=== PATIENT | female | born 1995 | race Caucasian/White ===

== ENCOUNTER 2020-12-26 17:35 | Emergency (ER) | payer MEDICAID, OTHER ==
[~2020-12-26] VITALS: Ht 175.2 cm; Wt 57.9 kg
--- NOTE | 2020-12-26 17:49 | ED Fall/Injury ---
General Stated Complaint: FALL | SYNCOPE | SHAKING History of Present Illness Date Seen by Provider: Dec 26, 2020 Time Seen by Provider: 17:45 Initial Comments 25-year-old female presents with a "seizure-like episode" patient's mom reports that she was there and Fell to the ground right low back of her head she shook and her tongue was going in and out. Lasted real briefly. The patient was aware that something abnormal had happened. She did not bite her tongue. She has no seizure history. She recently had her teeth pulled as on some Lortab for pain. She describes some generalized malaise. Maybe some fever. No nausea, vomiting. She had no loss of bowel or bladder function. Allergies and Home Medications Allergies Coded Allergies: No Known Drug Allergies (Unverified , 12/26/20) Uncoded Allergies: coffee beans (Adverse Reaction, Unknown, 12/26/20) Home Medications Cephalexin 500 Mg Tablet, 500 MG PO QID Prescribed by: KRISSY PRO on 12/26/20 [id number] Patient Home Medication List Home Medication List Reviewed: Yes Review of Systems Review of Systems Constitutional: see HPI; No chills Eyes: No Symptoms Reported Ears, Nose, Mouth, Throat: see HPI Respiratory: no symptoms reported Gastrointestinal: no symptoms reported Genitourinary: no symptoms reported Musculoskeletal: see HPI Skin: no symptoms reported Psychiatric/Neurological: See HPI Past Ixtiaqf-Drrxsg-Zrlqiu Hx Past Med/Social Hx: Reviewed Nursing Past Med/Soc Hx Physical Exam Vital Signs Vital Signs - First Documented 12/26/20 17:45 Temp 36.9 Pulse 58 Resp 18 B/P (MAP) 105/73 (84) Pulse Ox 100 O2 Delivery Room Air Capillary Refill : Height, Weight, BMI Height: '" Weight: lbs. oz. kg; BMI Method: General Appearance: no apparent distress HEENT: PERRL/EOMI, normal ENT inspection Neck: full range of motion, supple Cardiovascular: normal peripheral pulses, regular rate, rhythm, no edema Respiratory: lungs clear, normal breath sounds Gastrointestinal: non tender, soft Back: no CVA tenderness, no vertebral tenderness Extremities: normal range of motion, non-tender Neurologic/Psychiatric: normal mood/affect, oriented x 3 Skin: normal color, warm/dry Progress/Results/Core Measures Results/Orders Lab Results Laboratory Tests Test 12/26/20 17:52 12/26/20 17:58 Range/Units White Blood Count 13.5 H 4.3-11.0 10^3/uL Red Blood Count 4.60 4.35-5.85 10^6/uL Hemoglobin 13.8 11.5-16.0 G/DL Hematocrit 40 35-52 % Mean Corpuscular Volume 88 80-99 FL Mean Corpuscular Hemoglobin 30 25-34 PG Mean Corpuscular Hemoglobin Concent 34 32-36 G/DL Red Cell Distribution Width 12.1 10.0-14.5 % Platelet Count 300 130-400 10^3/uL Mean Platelet Volume 10.6 H 7.4-10.4 FL Immature Granulocyte % (Auto) 0 % Neutrophils (%) (Auto) 54 42-75 % Lymphocytes (%) (Auto) 38 12-44 % Monocytes (%) (Auto) 5 0-12 % Eosinophils (%) (Auto) 2 0-10 % Basophils (%) (Auto) 0 0-10 % Neutrophils # (Auto) 7.2 1.8-7.8 X 10^3 Lymphocytes # (Auto) 5.1 H 1.0-4.0 X 10^3 Monocytes # (Auto) 0.7 0.0-1.0 X 10^3 Eosinophils # (Auto) 0.3 0.0-0.3 10^3/uL Basophils # (Auto) 0.0 0.0-0.1 10^3/uL Immature Granulocyte # (Auto) 0.1 0.0-0.1 10^3/uL Sodium Level 140 135-145 MMOL/L Potassium Level 3.9 3.6-5.0 MMOL/L Chloride Level 107 98-107 MMOL/L Carbon Dioxide Level 24 21-32 MMOL/L Anion Gap 9 5-14 MMOL/L Blood Urea Nitrogen 11 7-18 MG/DL Creatinine 0.82 0.60-1.30 MG/DL Estimat Glomerular Filtration Rate > 60 BUN/Creatinine Ratio 13 Glucose Level 108 H 70-105 MG/DL Lactic Acid Level 0.90 0.50-2.00 MMOL/L Calcium Level 8.9 8.5-10.1 MG/DL Corrected Calcium 8.7 8.5-10.1 MG/DL Magnesium Level 2.0 1.6-2.4 MG/DL Total Bilirubin 1.1 H 0.1-1.0 MG/DL Aspartate Amino Transf (AST/SGOT) 12 5-34 U/L Alanine Aminotransferase (ALT/SGPT) 11 0-55 U/L Alkaline Phosphatase 58 40-136 U/L Total Protein 6.6 6.4-8.2 GM/DL Albumin 4.2 3.2-4.5 GM/DL Serum Alcohol < 10 <10 MG/DL Urine Color DARK YELLOW Urine Clarity CLOUDY Urine pH 6.0 5-9 Urine Specific [place] 1.025 H 1.016-1.022 Urine Protein 2+ H NEGATIVE Urine Glucose (UA) NEGATIVE NEGATIVE Urine Ketones TRACE H NEGATIVE Urine Nitrite NEGATIVE NEGATIVE Urine Bilirubin 1+ H NEGATIVE Urine Urobilinogen 1.0 < = 1.0 MG/DL Urine Leukocyte Esterase TRACE H NEGATIVE Urine RBC (Auto) 2+ H NEGATIVE Urine RBC 50-100 H /HPF Urine WBC 5-10 H /HPF Urine Squamous Epithelial Cells 5-10 /HPF Urine Crystals NONE /LPF Urine Bacteria FEW H /HPF Urine Casts NONE /LPF Urine Mucus LARGE H /LPF Urine Culture Indicated YES Urine Test NEGATIVE NEGATIVE Urine Opiates Screen POSITIVE H NEGATIVE Urine Oxycodone Screen NEGATIVE NEGATIVE Urine Methadone Screen NEGATIVE NEGATIVE Urine Propoxyphene Screen NEGATIVE NEGATIVE Urine Barbiturates Screen NEGATIVE NEGATIVE Ur Tricyclic Antidepressants Screen NEGATIVE NEGATIVE Urine Phencyclidine Screen NEGATIVE NEGATIVE Urine Amphetamines Screen NEGATIVE NEGATIVE Urine Methamphetamines Screen NEGATIVE NEGATIVE Urine Benzodiazepines Screen NEGATIVE NEGATIVE Urine Cocaine Screen NEGATIVE NEGATIVE Urine Cannabinoids Screen POSITIVE H NEGATIVE My Orders Orders - PRO,KRISSY L DO Alcohol (12/26/20 17:49) Cbc With Automated Diff (12/26/20 17:49) Comprehensive Metabolic Panel (12/26/20 17:49) Drug Screen Stat (Urine) (12/26/20 17:49) Hcg,Qualitative Urine (12/26/20 17:49) Lactic Acid Analyzer (12/26/20 17:49) Magnesium (12/26/20 17:49) Ua Culture If Indicated (12/26/20 17:49) Ct Head Wo (12/26/20 17:49) Lactated Ringers (Lr 1000 Ml Iv Solution (12/26/20 18:11) Urine Culture (12/26/20 17:58) Ceftriaxone For Iv Use (Rocephin For I (12/26/20 18:26) Vital Signs/I&O 12/26/20 17:45 Temp 36.9 Pulse 58 Resp 18 B/P (MAP) 105/73 (84) Pulse Ox 100 O2 Delivery Room Air Progress Progress Note : Progress Note Patient's history and current exam seems more likely a syncopal event. However unsure if she passed he did have seizure activity. She does have a urinary tract infection. I will start her on Keflex outpatient due to the recent dental work and her urinary tract infection. I recommend they follow-up with her primary care provider and outpatient basis to have further evaluation for possible seizure. Patient stable and discharged Diagnostic Imaging Diagonstic Imaging: CT Plain Films/CT/US/NM/MRI: head Comments Date of Exam:12/26/20 CT HEAD WO PROCEDURE: CT head without contrast. TECHNIQUE: Multiple contiguous axial images were obtained through the brain without the use of intravenous contrast. Auto Exposure Controls were utilized during the CT exam to meet ALARA standards for radiation dose reduction. INDICATION: Seizures. FINDINGS: There is no hemorrhage, hydrocephalus, edema, mass, mass effect or evidence for an elevation of the intracranial pressures. The basilar cisterns are patent. There is no sulcal effacement. There are no abnormal extra-axial fluid collections. The orbits, sinuses and calvarium appear nonacute. IMPRESSION: No acute appearing abnormality. Focused Exam Lactate Level 12/26/20 17:52: Lactic Acid Level 0.90 Lactic Acid Level Laboratory Tests Test 12/26/20 17:52 Lactic Acid Level 0.90 MMOL/L (0.50-2.00) Departure Impression Primary Impression: Urinary tract infection Qualified Codes: N30.01 - Acute cystitis with hematuria Additional Impression: Witnessed seizure-like activity Disposition: HOME, SELF-CARE Condition: Stable Departure-Patient Inst. Referrals: HEBER LEIVA MD (PCP/Family) Primary Care Physician Patient Instructions: Urinary Tract Infection, Adult ED, Seizures, Syncope (Fainting) (DC) Add. Discharge Instructions: Follow-up with your primary care provider next week for recheck of your symptoms and further outpatient evaluation for potential seizure activity Scripts Cephalexin (Cephalexin) 500 Mg Tablet 500 MG PO QID, #20 TAB 0 Refills Prov: PRO,KRISSY L DO 12/26/20 PROSABRINAR L DO Dec 26, 2020 17:49
[2020-12-26 18:09] LABS: BASOPHILS % (AUTO) 0 % (0-10); EOSINOPHILS % (AUTO) 2 % (0-10); HEMATOCRIT 40 % (35-52); HEMOGLOBIN 13.8 G/DL (11.5-16.0); LYMPHOCYTES % (AUTO) 38 % (12-44); MEAN CORPUSCULAR HEMOGLOBIN 30 PG (25-34); MEAN CORPUSCULAR HGB CONC 34 G/DL (32-36); MEAN CORPUSCULAR VOLUME 88 FL (80-99); MEAN PLATELET VOLUME 10.6 FL (7.4-10.4); MONOCYTES % (AUTO) 5 % (0-12); NEUTROPHILS % (AUTO) 54 % (42-75); PLATELET COUNT 300 10^3/uL (130-400); WHITE BLOOD COUNT 13.5 10^3/uL (4.3-11.0)
[2020-12-26 18:10] LABS: HCG,QUALITATIVE URINE NEGATIVE (NEGATIVE)
[2020-12-26 18:10] LABS: EOSINOPHILS # (AUTO) 0.3 10^3/uL (0.0-0.3); LYMPHOCYTES # (AUTO) 5.1 X 10^3 (1.0-4.0); MONOCYTES # (AUTO) 0.7 X 10^3 (0.0-1.0); NEUTROPHILS # (AUTO) 7.2 X 10^3 (1.8-7.8)
[2020-12-26] MEDS ORDERED: LACTATED RINGERS 1,000 ML IV STA (18:11)
[2020-12-26] MEDS ORDERED: Amoxicillin (18:13)
[2020-12-26] MEDS ORDERED: Hydrocodone (18:13)
--- NOTE | 2020-12-26 18:15 | Diagnostic Imaging Report ---
PROCEDURE: CT head without contrast. TECHNIQUE: Multiple contiguous axial images were obtained through the brain without the use of intravenous contrast. Auto Exposure Controls were utilized during the CT exam to meet ALARA standards for radiation dose reduction. INDICATION: Seizures. FINDINGS: There is no hemorrhage, hydrocephalus, edema, mass, mass effect or evidence for an elevation of the intracranial pressures. The basilar cisterns are patent. There is no sulcal effacement. There are no abnormal extra-axial fluid collections. The orbits, sinuses and calvarium appear nonacute. IMPRESSION: No acute appearing abnormality. Dictated by: Dictated on workstation # [id number]
[2020-12-26 18:16] LABS: BACTERIA,URINE FEW /HPF; BILIRUBIN,URINE 1+ (NEGATIVE); CLARITY,URINE CLOUDY; COLOR,URINE DARK YELLOW; GLUCOSE, URINE (UA) NEGATIVE (NEGATIVE); KETONES,URINE TRACE (NEGATIVE); LEUKOCYTE ESTERASE ,URINE TRACE (NEGATIVE); NITRITE,URINE NEGATIVE (NEGATIVE); PROTEIN,URINE 2+ (NEGATIVE); RBC,URINE 50-100 /HPF
[2020-12-26 18:19] LABS: AMPHETAMINE SCREEN, URINE NEGATIVE (NEGATIVE); BARBITURATE SCREEN URINE NEGATIVE (NEGATIVE); BENZODIAZEPINES SCREEN URINE NEGATIVE (NEGATIVE); CANNABINOID SCREEN, URINE POSITIVE (NEGATIVE); COCAINE SCREEN URINE NEGATIVE (NEGATIVE); METHADONE STAT NEGATIVE (NEGATIVE); METHAMPHETAMINE SCREEN URINE S NEGATIVE (NEGATIVE); OPIATE SCREEN URINE POSITIVE (NEGATIVE); OXYCODONE STAT NEGATIVE (NEGATIVE); PROPOXYPHENE STAT NEGATIVE (NEGATIVE); TRICYCLIC ANTIDEPRESSANTS SCRE NEGATIVE (NEGATIVE)
[2020-12-26 18:25] LABS: ALKALINE PHOSPHATASE 58 U/L (40-136); BILIRUBIN,TOTAL 1.1 MG/DL (0.1-1.0); BUN/CREATININE RATIO 13; CALCIUM 8.9 MG/DL (8.5-10.1); CARBON DIOXIDE 24 MMOL/L (21-32); CHLORIDE 107 MMOL/L (98-107); CREATININE SERUM 0.82 MG/DL (0.60-1.30); GFR ESTIMATED > 60; GLUCOSE 108 MG/DL (70-105); POTASSIUM 3.9 MMOL/L (3.6-5.0); SODIUM 140 MMOL/L (135-145)
[2020-12-26 18:26] LABS: ALANINE AMINOTRANSFERASE 11 U/L (0-55); ALBUMIN 4.2 GM/DL (3.2-4.5); TOTAL PROTEIN 6.6 GM/DL (6.4-8.2)
[2020-12-26] MEDS ORDERED: cefTRIAXone FOR IV USE 1,000 MG in WATER (STERILE) FOR INJECTION 10 ML IV STA (18:26)
[2020-12-26] MEDS ORDERED: CEPH500T PO (18:36)
[2020-12-26 19:01] VITALS: BP 87/43
== END 2020-12-26 19:01 | disposition home or self-care (01) ==
LOC: ER FS 17:39
DX: N39.0 Urinary tract infection, site not specified (principal); R29.818 Other symptoms and signs involving the nervous system
CPT/HCPCS: 36415; 70450; 80053; 80306; 80320; 81000; 83605; 83735; 84703; 85025; 87088

== ENCOUNTER 2022-04-24 16:31 | Emergency (ER) | payer MEDICAID ==
[~2022-04-24] VITALS: Ht 177.8 cm; Wt 57.0 kg
[~2022-04-24 16:31] MED LIST: Amoxicillin; CEPH500T PO; Hydrocodone
[2022-04-24 16:40] VITALS: BP 122/73
[2022-04-24 16:43] LABS: CLARITY,URINE CLEAR; GLUCOSE, URINE (UA) NEGATIVE (NEGATIVE); KETONES,URINE TRACE (NEGATIVE); LEUKOCYTE ESTERASE ,URINE 2+ (NEGATIVE); NITRITE,URINE NEGATIVE (NEGATIVE); PROTEIN,URINE TRACE (NEGATIVE)
[2022-04-24 16:46] LABS: BACTERIA,URINE LARGE /HPF; BILIRUBIN,URINE 1+ (NEGATIVE); COLOR,URINE DARK YELLOW; WBC,URINE 50-100 /HPF
[2022-04-24] MEDS ORDERED: KETOROLAC 60 MG/2 ML VIAL IM STA (16:53)
[2022-04-24] MEDS ORDERED: LIDOCAINE 1% INJ 50 ML (XYLOCAINE) VIAL IJ STA (16:53)
[2022-04-24] MEDS ORDERED: cefTRIAXone 1,000 MG VIAL IM STA (16:53)
[2022-04-24 16:55] LABS: AMPHETAMINE SCREEN, URINE NEGATIVE (NEGATIVE); BARBITURATE SCREEN URINE NEGATIVE (NEGATIVE); BENZODIAZEPINES SCREEN URINE NEGATIVE (NEGATIVE); CANNABINOID SCREEN, URINE POSITIVE (NEGATIVE); COCAINE SCREEN URINE NEGATIVE (NEGATIVE); METHADONE STAT NEGATIVE (NEGATIVE); OPIATE SCREEN URINE POSITIVE (NEGATIVE); OXYCODONE STAT NEGATIVE (NEGATIVE); PROPOXYPHENE STAT NEGATIVE (NEGATIVE); TRICYCLIC ANTIDEPRESSANTS SCRE NEGATIVE (NEGATIVE)
--- NOTE | 2022-04-24 17:01 | ED Back Pain ---
General Chief Complaint: Back Problems Stated Complaint: LOW BACK PAIN/FEVER Nursing Triage Note: Patient reports she has had a fever, dizziness, lower back pain for 2 days. She states she became dizzy and threw up yesterday after drinking some water. She reports she has not had a bowel movement in 3 days. Source of Information: Patient History of Present Illness Date Seen by Provider: Apr 24, 2022 Time Seen by Provider: 16:34 Initial Comments 27-year-old female presenting with complaints of low back pain, low-grade fever, dizziness, nausea and vomiting. This has been going on for 2 to 3 days but got worse over the weekend. She had tried taking ibuprofen for the back pain but it did not help. She still was having low-grade fever as well despite the ibuprofen. She had vomiting yesterday but has kept down a donut and Sprite today. Constipation x 3 days. She denies pain with urination but has been having some frequency. She states this feels similar to when she had a UTI about a year ago. Location: Lumbar Spine Timing/Duration: 2-3 Days Severity: Moderate Pain/Injury Location: Back Method of Injury: Unknown Modifying Factors: Worse With Movement Associated Symptoms: No muscle spasms; fever; No weakness, No numbness in legs/feet, No tingling in legs/feet, No sensory/motor loss; lower back pain; No loss of bladder control, No loss of bowel control Allergies and Home Medications Allergies Coded Allergies: No Known Drug Allergies (Unverified , 12/26/20) Uncoded Allergies: coffee beans (Adverse Reaction, Unknown, 12/26/20) Patient Home Medication List Home Medication List Reviewed: Yes Cephalexin (Cephalexin) 500 Mg Tablet, 500 MG PO QID Prescribed by: KRISSY PRO on 12/26/201835 [Amoxicillin] , (Reported) Entered as Reported by: MAXIMUS GALVAN on 12/26/201812 [Hydrocodone] , (Reported) Entered as Reported by: MAXIMUS GALVAN on 12/26/201812 Review of Systems Constitutional: see HPI, chills, dizziness, fever (Low-grade), malaise EENTM: no symptoms reported Respiratory: no symptoms reported Cardiovascular: no symptoms reported Gastrointestinal: constipation, nausea, vomiting Genitourinary: No dysuria; frequency : No LMP: Apr 10, 2022 Musculoskeletal: see HPI Skin: No rash Psychiatric/Neurological: No Symptoms Reported Past Xtgfenr-Mffqxc-Amkmam Hx Patient Social History Tobacco Use?: Yes Tobacco type used: Cigarettes Smoking Status: Current Everyday Smoker Substance use?: Yes Substance type: Marijuana Substance frequency: Once in a while Alcohol Use?: No Pt feels they are or have been: No Immunizations Up To Date Tetanus Booster (TDap): Unknown PED Vaccines UTD: Yes Seasonal Allergies Seasonal Allergies: No Past Medical History Surgery/Hospitalization HX: None Surgeries: Yes ([place] teeth extraction) Respiratory: No Cardiac: No Neurological: No Last Menstrual Period: Apr 10, 2022 Genitourinary: No Gastrointestinal: No Musculoskeletal: No Endocrine: No HEENT: No Cancer: No Psychosocial: No Integumentary: No Blood Disorders: No Physical Exam Vital Signs Vital Signs - First Documented 04/24/22 16:40 Temp 36.7 Pulse 96 Resp 18 B/P (MAP) 122/73 (89) Pulse Ox 96 O2 Delivery Room Air Capillary Refill : Less Than 3 Seconds Height, Weight, BMI Height: '" Weight: lbs. oz. kg; 18.00 BMI Method: General Appearance: No Apparent Distress, WD/WN HEENT: PERRL/EOMI, Pharynx Normal Neck: Full Range of Motion, Normal Inspection, Non Tender, Supple Cardiovascular: Regular Rate, Rhythm, Normal Peripheral Pulses Respiratory: Chest Non Tender, Lungs Clear, Normal Breath Sounds, No Accessory Muscle Use, No Respiratory Distress Gastrointestinal: Normal Bowel Sounds, No Pulsatile Mass, Non Tender, Soft Back: No CVA Tenderness, Other (Tender to palpation in the lower lumbar spine paraspinal muscles) Extremity: Normal Capillary Refill, Normal Inspection, No Pedal Edema Neurologic/Psychiatric: Alert, Oriented x3, signals intelligence analysis manager II-XII Norm as Tested Skin: Normal Color, Warm/Dry; No Rash Progress/Results/Core Measures Results/Orders Lab Results Laboratory Tests Test 04/24/22 16:40 Range/Units Urine Color DARK YELLOW Urine Clarity CLEAR Urine pH 6.0 5-9 Urine Specific [place] 1.025 H 1.016-1.022 Urine Protein TRACE H NEGATIVE Urine Glucose (UA) NEGATIVE NEGATIVE Urine Ketones TRACE H NEGATIVE Urine Nitrite NEGATIVE NEGATIVE Urine Bilirubin 1+ H NEGATIVE Urine Urobilinogen 1.0 < = 1.0 MG/DL Urine Leukocyte Esterase 2+ H NEGATIVE Urine RBC (Auto) NEGATIVE NEGATIVE Urine RBC NONE /HPF Urine WBC 50-100 H /HPF Urine Squamous Epithelial Cells 10-25 H /HPF Urine Crystals NONE /LPF Urine Bacteria LARGE H /HPF Urine Casts NONE /LPF Urine Mucus LARGE H /LPF Urine Culture Indicated YES My Orders Orders - BITA COLVIN MD Ua Culture If Indicated (04/24/22 16:34) Urine Bedside (04/24/22 16:34) Drug Screen Stat (Urine) (04/24/22 16:34) Urine Culture (04/24/22 16:40) Ceftriaxone (Rocephin) (04/24/22 16:53) Lidocaine 1% Inj 50 Ml (Xylocaine 1% Inj (04/24/22 16:53) Ketorolac Injection (Toradol Injection) (04/24/22 16:53) Vital Signs/I&O 04/24/22 16:40 Temp 36.7 Pulse 96 Resp 18 B/P (MAP) 122/73 (89) Pulse Ox 96 O2 Delivery Room Air Blood Pressure Mean: 89 Progress Progress Note : Progress Note Bedside test was negative. Urinalysis shows signs of infection and dehydration with elevated specific gravity, white blood cells, leukocyte esterase, bacteria. Will treat with a Rocephin IM shot here and Toradol IM for back pain. Encourage fluids and hydration. Continue with oral antibiotics for the UTI. Follow-up for continued concerns Departure Impression Primary Impression: Acute cystitis without hematuria Additional Impressions: Low back pain Qualified Codes: M54.50 - Low back pain, unspecified Nausea and vomiting in adult Constipation Qualified Codes: K59.00 - Constipation, unspecified Disposition: 01 HOME, SELF-CARE Condition: Stable Departure-Patient Inst. Decision time for Depature: 17:00 Referrals: HEBER LEIVA MD (PCP) Primary Care Physician [facility] [place] Instructions: Nausea and Vomiting, Adult ED, Urinary Tract Infection, Adult ED, Low Back Pain ED, Constipation, Adult ED Add. Discharge Instructions: Stay well-hydrated and drink plenty of fluids. Take the full course of antibiotics to treat for the urinary tract infection. Use the dissolving nausea tablets as needed for controlling your nausea and helping settle your stomach. If not improving in 2 to 3 days check back with your primary clinic or seek medical care for further evaluation All discharge instructions reviewed with patient and/or family. Voiced understanding. Scripts Ondansetron (Ondansetron Odt) 4 Mg Tab.rapdis 4 MG PO Q6H PRN for NAUSEA/VOMITING for 3 Days, #12 TAB 0 Refills Prov: BITA COLVIN MD 04/24/22 Nitrofurantoin Monohyd/M-Cryst (Macrobid 100 mg Capsule) 100 Mg Capsule 1 TAB PO BID for UTI for 7 Days, #14 CAP 0 Refills Prov: BITA COLVIN MD 04/24/22 Work/School Note: Work Release Form Date Seen in the Emergency Department: Apr 24, 2022 Return to Work: Apr 26, 2022 Restrictions: No Restrictions BITA COLVIN MD Apr 24, 2022 17:01
[2022-04-24] MEDS ORDERED: NITR-65 PO (17:03)
[2022-04-24] MEDS ORDERED: ONDA4TAB11 PO (17:03)
[2022-04-24] MEDS ORDERED: LIDOCAINE 1% INJ 20 ML VIAL INJ ONE (17:15)
== END 2022-04-24 17:07 | disposition home or self-care (01) ==
LOC: EDUNIT# 16:31 → ER FS 16:33
DX: N30.00 Acute cystitis without hematuria (principal); K59.00 Constipation, unspecified; M54.50 Low back pain, unspecified; R11.2 Nausea with vomiting, unspecified; F17.210 Nicotine dependence, cigarettes, uncomplicated; Z28.310 Unvaccinated for COVID-19; Z32.02 Encounter for pregnancy test, result negative
CPT/HCPCS: 80306; 81000; 84703; 87088; 99284

== ENCOUNTER 2022-08-04 20:00 | Emergency (ER) | payer MEDICAID ==
[~2022-08-04 20:00] MED LIST changes: +NITR-65 PO; +ONDA4TAB11 PO
--- NOTE | 2022-08-04 20:11 | ED Fever ---
History of Present Illness General Stated Complaint: FEVER History of Present Illness Date Seen by Provider: Aug 04, 2022 Time Seen by Provider: 20:06 Initial Comments 27-year-old female presents with fever and generalized malaise. She has some mild nausea, mild occasional cough. No vomiting or diarrhea. Patient reports that last Monday she tested positive for strep and was started on antibiotic. She developed a cough on Monday and Monday was seen and tested positive for influenza A. Patient is here because she does not know why she still has a fever and feels terrible Allergies and Home Medications Allergies Coded Allergies: No Known Drug Allergies (Unverified , 12/26/20) Uncoded Allergies: coffee beans (Adverse Reaction, Unknown, 12/26/20) Patient Home Medication List Home Medication List Reviewed: Yes Nitrofurantoin Monohyd/M-Cryst (Macrobid 100 mg Capsule) 100 Mg Capsule, 1 TAB PO BID Prescribed by: BITA COLVIN on 04/24/221702 Ondansetron (Ondansetron Odt) 4 Mg Tab.rapdis, 4 MG PO Q6H PRN for NAUSEA/VOMITING Prescribed by: BITA COLVIN on 04/24/221702 Review of Systems Review of Systems Constitutional: fever, malaise EENTM: No throat pain Respiratory: cough; No short of breath Cardiovascular: No chest pain, No palpitations Gastrointestinal: No abdominal pain, No constipation; nausea; No vomiting Musculoskeletal: no symptoms reported Skin: no symptoms reported Psychiatric/Neurological: No Symptoms Reported Hematologic/Lymphatic: No Symptoms Reported Past Bxprwna-Yiraau-Ynwdqc Hx Immunizations Up To Date Tetanus Booster (TDap): Unknown PED Vaccines UTD: Yes Seasonal Allergies Seasonal Allergies: No Past Medical History Surgery/Hospitalization HX: None Surgeries: Yes ([place] teeth extraction) Respiratory: No Cardiac: No Neurological: No Genitourinary: No Gastrointestinal: No Musculoskeletal: No Endocrine: No HEENT: No Cancer: No Psychosocial: No Integumentary: No Blood Disorders: No Physical Exam Capillary Refill : Height: '" Weight: lbs. oz. kg; 18.00 BMI Method: General Appearance: no apparent distress, other (Appears as if she does not feel well) HEENT: pharyngeal erythema; No tonsillar exudate Neck: full range of motion Respiratory: lungs clear, normal breath sounds Cardiovascular: normal peripheral pulses, regular rate, rhythm Gastrointestinal: non tender, soft Neurologic/Psychiatric: alert, normal mood/affect, oriented x 3 Skin: normal color, warm/dry Progress/Results/Core Measures Suspected Sepsis SIRS Temperature: Pulse: Respiratory Rate: Blood Pressure / Mean: Results/Orders Vital Signs/I&O Capillary Refill : Progress Note : Progress Note Patient with known influenza and strep. Discussed with her that she needs to finish out her antibiotics. That she is likely still suffering from influenza. Recommend she continue Tylenol antibiotic for fever she may add elderberry and plenty of fluids. She is stable and discharged Departure Impression Primary Impression: Influenza A Disposition: HOME, SELF-CARE Condition: Stable Departure-Patient Inst. Referrals: HEBER LEIVA MD (PCP/Family) Primary Care Physician Patient Instructions: Flu, Adult ED Add. Discharge Instructions: Xyrg-xpu-kukohhk elderberry use as directed on package, continue Tylenol and ibuprofen as needed for fever Work/School Note: Work Release Form Date Seen in the Emergency Department: Aug 04, 2022 Return to Work: Aug 08, 2022 Restrictions: Return-No Fever (24hrs) KRISSY PRO DO Aug 04, 2022 20:11
[2022-08-04 20:19] VITALS: BP 121/78
== END 2022-08-04 20:19 | disposition home or self-care (01) ==
LOC: EDUNIT# 20:00 → ER FS 20:01
DX: J10.1 Influenza due to other identified influenza virus with other respiratory manifestations (principal); Z28.310 Unvaccinated for COVID-19
CPT/HCPCS: 99283